=== PATIENT | female | born 1960 | race Caucasian/White ===

== ENCOUNTER → 2020-06-27 | Outpatient (CLI) | payer MEDICARE, OTHER ==
[2020-06-27 11:18] LABS: Basophils % (A) 1 %; Eosinophils # (A) 0.1 k/uL (0-0.7); Eosinophils % (A) 2 %; HCT 37.1 % (34.0-46.0); Hypochromasia Slight; Lymphocytes # (A) 1.5 k/uL (1.0-4.8); Lymphocytes % (A) 26 %; MCH 29.5 pg (25.0-35.0); MCHC 32.2 g/dL (31.0-37.0); MCV 91.6 fL (80.0-100.0); Monocytes # (A) 0.4 k/uL (0-1.0); Monocytes % (A) 6 %; Neutrophils # (A) 3.7 k/uL (1.3-7.7); Neutrophils % (A) 64 %; Platelet Count 231 k/uL (150-450); RBC 4.05 m/uL (3.80-5.40); RDW 13.7 % (11.5-15.5); WBC 5.7 k/uL (3.8-10.6)
[2020-06-27 11:29] LABS: Appearance,Urine Clear (Clear); Bacteria,Urine Rare /hpf; Bilirubin,Urine Negative (Negative); Blood,Urine Trace (Negative); Color,Urine Light Yellow; Glucose,Urine (UA) Negative (Negative); Ketones,Urine Negative (Negative); Leukocyte Esterase,Urine Negative (Negative); Mucus,Urine Rare /hpf; Nitrite,Urine Negative (Negative); PH, Urine 5.5 (5.0-8.0); Protein,Urine Trace (Negative); RBC,Urine 3 /hpf (0-5); Specific Gravity,Urine 1.011 (1.001-1.035); Squamous Epithelial Cell,Urine <1 /hpf (0-4); Urobilinogen,Urine <2.0 mg/dL (<2.0); WBC,Urine 8 /hpf (0-5)
[2020-06-27 11:35] LABS: African American GFR (CKD) 62 (>60 ml/min/1.73 sqM); Albumin 3.8 g/dL (3.5-5.0); Anion Gap 4 mmol/L; Blood Urea Nitrogen 19 mg/dL (7-17); Calcium 9.8 mg/dL (8.4-10.2); Carbon Dioxide 29 mmol/L (22-30); Chloride 103 mmol/L (98-107); Glucose 93 mg/dL (74-99); Non-African American GFR(CKD) 54 (>60 ml/min/1.73 sqM); Phosphorus 3.5 mg/dL (2.5-4.5); Potassium 4.4 mmol/L (3.5-5.1); Sodium 136 mmol/L (137-145)
== END | disposition home or self-care (01) ==
LOC: LABWHC1 10:39
PROVIDERS: ATTEND Internal Medicine
DX: I10 Essential (primary) hypertension (principal); R30.0 Dysuria; Z94.0 Kidney transplant status
CPT/HCPCS: 36415; 80069; 80197; 81001; 85025; 87086

== ENCOUNTER 2020-08-30 18:58 | Emergency (ER) | payer MEDICARE, OTHER ==
[2020-08-30 19:24] VITALS: BP 143/73; PULSE 87; TEMP 98
--- NOTE | 2020-08-30 20:17 | ED ---
Lower Extremity Injury HPI - General Chief Complaint: Extremity Injury, Lower Stated Complaint: left foot extremity pain Time Seen by Provider: 08/30/20 19:28 Source: patient Mode of arrival: wheelchair Limitations: no limitations - History of Present Illness Initial Comments: Patient is a 60-year-old female presenting to emergency Department with compl aints of pain in her left foot 2 days. Patient states she stepped out of her shower 2 days ago and felt pain and thinks she heard a crack in the left foot. Patient denies any previous injuries to her left foot or left ankle. She denies falling or twisting her ankle or foot. She states the pain and swelling has progressively gotten worse over the previous 2 days so she wanted to be seen. She denies any fever, chills, sores or ulcers. She denies any other injuries or complaints at this time. - Related Data Home Medications Medication Instructions Recorded Confirmed Fludrocortisone [Florinef] 0.1 mg PO BID 07/29/14 07/29/14 LORazepam [Ativan] 0.5 mg PO BID 07/29/14 07/29/14 Losartan [Cozaar] 50 mg PO DAILY 07/29/14 07/29/[address] [Myfortic] 540 mg PO BID 07/29/14 07/29/14 Pravastatin Sodium [Pravachol] 20 mg PO HS 07/29/14 07/29/14 Prochlorperazine [Compazine] 10 mg PO Q8H PRN 07/29/14 07/29/14 Risedronate Sodium [Actonel] 35 mg PO Q7DAYS 07/29/14 07/29/14 Tacrolimus [Prograf] 1 mg PO Q12H 07/29/14 07/29/14 Warfarin [Coumadin] 5 mg PO DIRECTED 07/29/14 07/29/14 lamoTRIgine [LaMICtal] 200 mg PO BID 07/29/14 07/29/14 predniSONE 7.5 mg PO DAILY 07/29/14 07/29/14 Previous Rx's Medication Instructions Recorded Famotidine [Pepcid] 20 mg PO DAILY #3 tablet 07/29/14 hydrOXYzine HCL [Atarax] 10 mg PO TID #15 tab 07/29/14 Allergies Allergy/AdvReac Type Severity Reaction Status Date / Time quinine Allergy Nausea & Verified 10/01/20 19:23 Vomiting & Diarrhea Review of Systems ROS Statement: Those systems with pertinent positive or pertinent negative responses have been documented in the HPI. ROS Other: All systems not noted in ROS Statement are negative. Past Medical History Past Medical History: Diabetes Mellitus, Myocardial Infarction ([place]), Seizure Disorder Additional Past Medical History / Comment(s): kidney and pancreas transplant, factor V liden, DVT left arm History of Any Multi-Drug Resistant Organisms: None Reported Past Surgical History: Section, Heart Catheterization With Stent Past Psychological History: No Psychological Hx Reported Smoking Status: Never smoker Past Alcohol Use History: None Reported Past Drug Use History: None Reported General Exam - General Exam Comments Initial Comments: GENERAL: Patient is well-developed and well-nourished. Patient is nontoxic and in no acute distress. HEAD: Atraumatic, normocephalic. EYES: Pupils equal round and reactive to light, extraocular movements intact, sclera a nicteric, conjunctiva are normal. Eyelids were unremarkable. ENT: TMs normal, nares patent, oropharynx clear without exudates. Moist mucous membranes. NECK: Normal range of motion, supple without lymphadenopathy or JVD. LUNGS: Unlabored respirations. Breath sounds clear to auscultation bilaterally and equal. No wheezes rales or rhonchi. HEART: Regular rate and rhythm without murmurs, rubs or gallops. ABDOMEN: Soft, nontender, normoactive bowel sounds. No guarding, no rebound. No masses appreciated. : Deferred MUSCULOSKELETAL: Pain with palpation over the dorsal aspect of the left foot, near fourth and fifth metatarsals. There is some mild swelling present, no deformity, no bruising, no signs of erythema or infection. She is neurovascular intact. She does have full ankle range of motion. No clubbing or cyanosis. NEUROLOGICAL: Patient is alert and oriented x 3. Motor and sensory are also intact. Normal speech, normal gait. PSYCH: Normal mood, normal affect. SKIN: Warm, Dry, normal turgor, no rashes or lesions noted. Limitations: no limitations Course Vital Signs 08/30/20 19:19 Temperature 98.0 F Pulse Rate 87 Respiratory 18 Rate Blood Pressure 143/73 O2 Sat by Pulse 99 Oximetry Medical Decision Making - Medical Decision Making Patient is a 60-year-old female here for left foot pain after stepping out of the shower 2 days ago. X-rays of the left foot reveal no acute fractures dislocations. I discussed with patient this could be just a bone contusion/foot sprain. I do recommend ice the area, ibuprofen, elevation for discomfort. She can follow up with orthopedics if symptoms persist. She is in agreement with this plan of care and is stable for discharge. Disposition Clinical Impression: Left foot pain Disposition: HOME SELF-CARE Condition: Stable Instructions (If sedation given, give patient instructions): Arthralgia (ED) Additional Instructions: Please return to the Emergency Department if symptoms worsen or any other concerns. Recommend ice to the area, supportive shoes, elevation, Motrin for discomfort. If symptoms persist, follow up with orthopedics as discussed. Is patient prescribed a controlled substance at d/c from ED?: No Referrals: None,Stated [Primary Care Provider] - 1-2 days Lobo Garcia, [Medical Doctor] - 1-2 days
--- NOTE | 2020-08-30 20:23 | XR ---
EXAMINATION TYPE: XR foot complete LT DATE OF EXAM: 08/30/2020 COMPARISON: NONE HISTORY: Foot pain TECHNIQUE: 3 views FINDINGS: Metatarsals are intact. There is some deformity of the proximal phalanx of the little toe c onsistent with an old healed fracture. I see no acute fracture nor dislocation. There is mild vascula r calcification. IMPRESSION: No acute abnormality of the left foot.
[2020-08-30 21:00] VITALS: RESP 12
== END 2020-08-30 20:44 | disposition home or self-care (01) ==
LOC: EC 18:58
DX: M79.672 Pain in left foot (principal); R22.42 Localized swelling, mass and lump, left lower limb; I25.2 Old myocardial infarction; Z79.01 Long term (current) use of anticoagulants; Z79.899 Other long term (current) drug therapy; Z94.0 Kidney transplant status; Z94.83 Pancreas transplant status; Z88.8 Allergy status to other drugs, medicaments and biological substances; Z95.5 Presence of coronary angioplasty implant and graft; X50.1XXA Overexertion from prolonged static or awkward postures, initial encounter
CPT/HCPCS: 99283

== ENCOUNTER 2021-06-11 13:07 | Emergency (ER) | payer MEDICARE, OTHER ==
[2021-06-11 13:24] VITALS: RESP 18
[2021-06-11] MEDS ORDERED: HYDROmorphone 0.5 MG/0.5 ML SYRINGE IVP STA (13:40)
[2021-06-11] MEDS ORDERED: KETOROLAC 15 MG/ML 1 ML VIAL IVP STA (13:40)
--- NOTE | 2021-06-11 14:38 | ED ---
General Adult HPI - General Chief complaint: Fall Stated complaint: Fall Time Seen by Provider: 06/11/21 13:10 Source: patient, EMS, RN notes reviewed, old records reviewed Mode of arrival: EMS Limitations: physical limitation - History of Present Illness Initial comments: This is a 61-year-old female presents emergency Department complaining that she has orthostatic hypotension and often gets lightheaded. Today she fell and hurt her right knee in her left foot. Patient denies any head trauma or neck trauma. Patient denies any chest pain back pain or abdominal pain. Patient denies any upper extremity pain. Patient denies any hip pain. Patient did have an abrasion on her right knee but states that she has a tetanus up-to-date. Patient states she often will become very lightheaded but usually does not fall but she did fall quite hard. Patient states she never lost consciousness and never hit her head - Related Data Home Medications Medication Instructions Recorded Confirmed Fludrocortisone [Florinef] 0.1 mg PO BID 07/29/14 07/29/14 LORazepam [Ativan] 0.5 mg PO BID 07/29/14 07/29/14 Losartan [Cozaar] 50 mg PO DAILY 07/29/14 07/29/[address] [Myfortic] 540 mg PO BID 07/29/14 07/29/14 Pravastatin Sodium [Pravachol] 20 mg PO HS 07/29/14 07/29/14 Prochlorperazine [Compazine] 10 mg PO Q8H PRN 07/29/14 07/29/14 Risedronate Sodium [Actonel] 35 mg PO Q7DAYS 07/29/14 07/29/14 Tacrolimus [Prograf] 1 mg PO Q12H 07/29/14 07/29/14 Warfarin [Coumadin] 5 mg PO DIRECTED 07/29/14 07/29/14 lamoTRIgine [LaMICtal] 200 mg PO BID 07/29/14 07/29/14 predniSONE 7.5 mg PO DAILY 07/29/14 07/29/14 Previous Rx's Medication Instructions Recorded Famotidine [Pepcid] 20 mg PO DAILY #3 tablet 07/29/14 hydrOXYzine HCL [Atarax] 10 mg PO TID #15 tab 07/29/14 Allergies Allergy/AdvReac Type Severity Reaction Status Date / Time cephalexin [From Keflex] Allergy Diarrhea Verified 06/11/21 13:24 quinine Allergy Nausea & Verified 08/30/20 19:23 Vomiting & Diarrhea Review of Systems ROS Statement: Those systems with pertinent positive or pertinent negative responses have been documented in the HPI. ROS Other: All systems not noted in ROS Statement are negative. Past Medical History Past Medical History: Diabetes Mellitus, Fibromyalgia, Hyperlipidemia, Hypertension, Myocardial Infarction ([place]), Osteoarthritis ([place]), Seizure Disorder Additional Past Medical History / Comment(s): kidney and pancreas transplant, factor V liden, DVT left arm, [place] and stents placed in 2009, History of Any Multi-Drug Resistant Organisms: None Reported Past Surgical History: Section, Heart Catheterization With Stent Additional Past Surgical History / Comment(s): 3 c-sections, fistula left arm (no thrill), Past Psychological History: Anxiety Smoking Status: Second hand smoke exposure Past Alcohol Use History: None Reported Past Drug Use History: None Reported General Exam - General Exam Comments Initial Comments: GENERAL: Patient is well-developed and well-nourished. Patient is nontoxic and well- hydrated and is in mild distress. ENT: Neck is soft and supple. No significant lymphadenopathy is noted. Oropharynx is clear. Moist mucous membranes. Neck has full range of motion without eliciting any pain. EYES: The sclera were anicteric and conjunctiva were pink and moist. Extraocular movements were intact and pupils were equal round and reactive to light. Eyelids were unremarkable. PULMONARY: Unlabored respirations. Good breath sounds bilaterally. No audible rales rhonchi or wheezing was noted. CARDIOVASCULAR: There is a regular rate and rhythm without any murmurs gallops or rubs. ABDOMEN: Soft and nontender with normal bowel sounds. SKIN: Skin is clear with no lesions or rashes and otherwise unremarkable. NEUROLOGIC: Patient is alert and oriented x3. Cranial nerves II through XII are grossly intact. Motor and sensory are also intact. Normal speech, volume and content. Symmetrical smile. MUSCULOSKELETAL: Normal extremities with adequate strength and full range of motion. LYMPHATICS: No significant lymphadenopathy is noted PSYCHIATRIC: Normal psychiatric evaluation. Limitations: physical limitation Course Vital Signs 06/11/21 06/11/21 13:10 14:42 Temperature 98.3 F Pulse Rate 90 88 Respiratory 18 18 Rate Blood Pressure 157/83 129/72 O2 Sat by Pulse 100 98 Oximetry Procedures - Orthopedic Splinting/Casting Injury #1 Side: left Lower Extremity Injury Location: short leg Lower Extremity Immobilizer: posterior splint Medical Decision Making - Medical Decision Making EKG shows normal sinus rhythm at 89 bpm OR interval 222 QRS is 88 QT interval 374 QTC is 455. Patient's EKG shows no ST segment elevation or depression. Patient's x-ray of the knee shows fracture patella. Patient's x-ray of the foot shows a fifth proximal metatarsal fracture. I placed the patient was splinted in a knee immobilizer. Disposition Clinical Impression: Fracture of fifth metatarsal bone, Patella fracture Disposition: HOME SELF-CARE Condition: Good Instructions (If sedation given, give patient instructions): Fall Prevention for Older Adults (ED) Is patient prescribed a controlled substance at d/c from ED?: No Referrals: Camilo Vidal MD [STAFF PHYSICIAN] - 1-2 days Time of Disposition: 15:36
--- NOTE | 2021-06-11 14:46 | XR ---
Right knee HISTORY: Trauma and pain 3 views the right knee There is a nondisplaced inferior patellar fracture. Alignment appears maintained. Bone mineralization otherwise within normal limits. Suprapatellar increased density is consistent with joint effusion. T here are vascular calcifications noted incidentally. IMPRESSION: Patellar fracture.
--- NOTE | 2021-06-11 14:48 | XR ---
Left foot HISTORY: Trauma and pain 3 views of the left foot correlated prior exam 08/30/2020 There is a proximal fifth metatarsal fracture with displacement of the proximal fracture fragment. Alexis ne mineralization is reduced. There are vascular calcifications within the soft tissues. No evident d islocation. IMPRESSION: Dancer's fracture with displacement.
[2021-06-11] MEDS ORDERED: ACET/COD 300 MG/30 MG STARTER PACK 6 TAB BTL PO STA (15:37)
[2021-06-11 16:11] VITALS: PULSE 89; TEMP 98.5
[2021-06-11 16:22] VITALS: BP 142/76
== END 2021-06-11 16:22 | disposition home or self-care (01) ==
LOC: EC 13:07
DX: S92.352A Displaced fracture of fifth metatarsal bone, left foot, initial encounter for closed fracture (principal); S82.001A Unspecified fracture of right patella, initial encounter for closed fracture; E11.9 Type 2 diabetes mellitus without complications; M79.7 Fibromyalgia; E78.5 Hyperlipidemia, unspecified; I10 Essential (primary) hypertension; I25.2 Old myocardial infarction; M19.90 Unspecified osteoarthritis, unspecified site; W19.XXXA Unspecified fall, initial encounter
CPT/HCPCS: 93005; 73562; 73630; 29515; 99284; 96374; L1830; J1170